=== PATIENT | female | born 1965 | race Two or more races ===

== ENCOUNTER 2019-06-27 23:35 | Emergency (ER) | payer OTHER ==
[~2019-06-27] VITALS: Ht 162.6 cm; Wt 70.0 kg
[2019-06-28] MEDS ORDERED: PROPOFOL 10 MG/ML, 20ML ONE (00:18)
--- NOTE | 2019-06-28 00:40 | NUR ---
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 CALL LIGHT IN REACH. PIV STARTED.
--- NOTE | 2019-06-28 00:57 | NUR ---
0030: CONSENT SIGNED FOR CLOSED REDUCTION OF RIGHT SHOULDER W/ PROCEDURAL SEDATION. IV ESTABLISHED AND ROOM READIED FOR SEDATION. 0040: ERP PRESENT, TIME OUT COMPLETED 0042: PT MEDICATED W/ 70MG PROPOFOL WITH POSITIVE EFFECT AND SHOULDER REDUCED 0045: END PROCEDURE. AIRWAY PATENT; PT MANAGING OWN SECRETIONS. RR WNL, SPO2 >90% ON 3L BY NC. SHOULDER SLING APPLIED. 0055: POST REDUCTION XRAY AT BEDSIDE. PT MOSTLY DROWSY, ARROUSABLE TO VERBAL STIMULI. REPORTS IMPROVEMENT IN PAIN. DENIES NAUSEA. CMS REMAINS INTACT. FAMILY PRESENT.
--- NOTE | 2019-06-28 01:07 | NUR ---
PT SITTING UP IN GURNEY, AWAKE/ALERT AND CONVERSANT. CONTINUES TO DENY PAIN. SPO2 >90% ON RA. AWAITING XRAY READ FOR DISPO
[2019-06-28 01:26] VITALS: BP 112/70
--- NOTE | 2019-06-28 01:41 | NUR ---
PT CONTINUES TO DENY PAIN. TAKING PO FLUIDS WO DIFFICULTY. VSS. DC EDUCATION PROVIDED, PT DEMONSTRATES UNDERSTANDING. PT TRANSFERED SELF TO WHEELCHAIR WO CO DIZZINESS/WEAKNESS/NAUSEA. WHEELED TO DC WITH FAMILY. FAMILY TO TRANSPORT PT HOME.
== END 2019-06-28 01:43 | disposition home or self-care (01) ==
LOC: ED 06-28 01:39
DX: S43.084A Other dislocation of right shoulder joint, initial encounter (principal); X58.XXXA Exposure to other specified factors, initial encounter; Y93.89 Activity, other specified; Y92.89 Other specified places as the place of occurrence of the external cause; Y99.8 Other external cause status
CPT/HCPCS: 23650; 99283; 99285